=== PATIENT | female | born 1960 | race Caucasian/White ===

== ENCOUNTER 2016-02-26 13:42 | Inpatient (IN) | payer BC ==
[~2016-02-26] VITALS: Ht 157.5 cm; Wt 94.3 kg
[~2016-02-26 13:42] MED LIST: ALPRAZOLAM0.5 MG PO; AMBIEN5 MG PO; AMLOD-VALSA-HC1 EAC2 PO; AMLODIPINE BESYL5 MG PO; BREO ELLIPTA 21 EACH IH; BREO ELLIPTA I1 EACH IH; CITRATE OF MAG296 ML PO; COLACE100 MG PO; COMPAZINE10 MG PO; DECADRON2 MG PO; DEXAMETHASONE1 MG PO; DEXAMETHASONE4 MG PO; DIGOXIN125 MCG PO; DIVALPROEX SOD500 M1 PO; DOCUSATE SODIU100 MG PO; ENDOCET 5-3251 EACH PO; FOLIC ACID1 MG PO; HYDROCHLOROTH12.5 M3 PO; HYDROCHLOROTHIA25 MG PO; HYDROCODON-ACE1 EAC7 PO; LEVETIRACETAM750 MG PO; LEVOTHYROXINE50 MCG PO; LEXAPRO10 MG PO; LEXAPRO20 MG PO; LIDOCAINE700 MG TD; LIDODERM 5% P1 PATCH TD; LISINOPRIL-HCT1 EACH PO; LOPRESSOR25 MG PO; LORTAB 5-325 M1 EACH PO; MAG-OXIDE400 MG PO; MAGIC MOUTHWASH1 ML MM; MIRALAX17 GM PO; NICOTINE LOZENGE4 MG BC; OXYCODONE-APAP1 EACH PO; PHENERGAN25 MG PR; PRAVASTATIN SOD40 MG PO; PRILOSEC40 MG PO; PROAIR HFA8.5 GM IH; PROCHLORPERAZIN10 MG PO; PROMETHAZINE HC25 M1 PO; PROVENTIL,2.5 MG/3 M IH; PROZAC40 MG PO; ROXICODONE5 MG PO; SPIRIVA1 INHALATI IH; SYMBICORT60 INHALA1 IH; TRADJENTA5 MG PO; TUMS500 MG PO; VENTOLIN HFA18 GM IH; XANAX0.5 MG PO; ZESTRIL10 MG PO; ZOFRAN4 MG PO
[2016-02-26 15:26] LABS: HEMATOCRIT 38.6 % (36.0-46.0); MCH 30.3 PG (29.0-34.0); MCHC 33.9 G/DL (30.0-36.0); MCV 89.1 FL (83-99); MEAN PLAT.VOLUME 10.2 uM^3 (9.5-12.4); PLATELET COUNT 210 K/uL (156-360); RBC DIS.WIDTH-CV 13.4 % (11.8-14.6); RBC DIS.WIDTH-SD 42.5 % (39-53); RED BLOOD COUNT 4.33 M/uL (3.80-5.20)
[2016-02-26 15:27] LABS: WHITE BLOOD COUNT 9.4 K/uL (4.1-10.2)
[2016-02-26 15:37] LABS: CHLORIDE 106 mEq/L (99-109); POTASSIUM 3.6 mEq/L (3.7-5.4); SODIUM 141 mEq/L (136-147)
[2016-02-26 15:39] LABS: GLUCOSE 98 mg/dL (70-99)
[2016-02-26 15:40] LABS: ANION GAP 14 MEQ/L (2-14)
[2016-02-26 15:43] LABS: GFR ESTIMATE (CALCULATED) 39 mL/min/
[2016-02-26 15:44] LABS: UREA NITROGEN (BUN) 24 mg/dL (9-23)
[2016-02-26 15:49] LABS: TROP-I INTERPRETATION NEGATIVE; TROPONIN-I < 0.01 ng/mL (0.0-0.30)
[2016-02-26 18:35] LABS: INFLUENZA A VIRAL ANTIGEN NEGATIVE; INFLUENZA B VIRAL ANTIGEN NEGATIVE
[2016-02-26] MEDS ORDERED: PROZAC20 MG PO (18:46)
[2016-02-26] MEDS ORDERED: TYLENOL EXTRA500 MG PO (18:48)
[2016-02-26] MEDS ORDERED: MECLIZINE HCL25 MG PO (18:48)
[2016-02-26] MEDS ORDERED: KEPPRA500 MG PO (18:48)
[2016-02-26] MEDS ORDERED: FOLIC ACID1 MG PO (18:48)
[2016-02-26] MEDS ORDERED: PROMETHAZINE HC25 M1 PO (18:49)
[2016-02-26] MEDS ORDERED: DEXAMETHASONE4 MG PO (18:51)
[2016-02-26] MEDS ORDERED: SYMBICORT60 INHALAT IH (18:52)
[2016-02-26 22:25] VITALS: BP 126/65
[2016-02-26 23:30] VITALS: BP 126/65
[2016-02-27 04:00] VITALS: BP 181/81
[2016-02-27 07:00] LABS: HEMATOCRIT 37.2 % (36.0-46.0); MCH 29.7 PG (29.0-34.0); MCHC 33.1 G/DL (30.0-36.0); MCV 89.9 FL (83-99); MEAN PLAT.VOLUME 10.2 uM^3 (9.5-12.4); PLATELET COUNT 224 K/uL (156-360); RBC DIS.WIDTH-CV 13.5 % (11.8-14.6); RBC DIS.WIDTH-SD 44.1 % (39-53); RED BLOOD COUNT 4.14 M/uL (3.80-5.20); WHITE BLOOD COUNT 12.1 K/uL (4.1-10.2)
[2016-02-27 07:34] LABS: ANION GAP 13 MEQ/L (2-14); CHLORIDE 105 MEQ/L (99-109); GFR ESTIMATE (CALCULATED) 36 mL/min/; SAMPLE HEMOLYSIS CHECK 0; SAMPLE ICTERIC CHECK 0; SAMPLE LIPEMIA CHECK 0; SODIUM 138 MEQ/L (136-147); UREA NITROGEN (BUN) 22 mg/dL (9-23)
[2016-02-27 07:36] LABS: GLUCOSE 217 mg/dL (70-99); POTASSIUM 4.4 MEQ/L (3.7-5.4)
[2016-02-27 07:48] VITALS: BP 158/74
[2016-02-27 10:58] VITALS: BP 113/62
[2016-02-27 14:57] VITALS: BP 122/66
[2016-02-27 19:41] VITALS: BP 123/64
[2016-02-27 23:12] VITALS: BP 130/68
[2016-02-28 04:00] VITALS: BP 129/81
[2016-02-28 07:05] LABS: HEMATOCRIT 34.6 % (36.0-46.0); MCH 29.1 PG (29.0-34.0); MCHC 32.9 G/DL (30.0-36.0); MCV 88.3 FL (83-99); MEAN PLAT.VOLUME 10.4 uM^3 (9.5-12.4); PLATELET COUNT 201 K/uL (156-360); RBC DIS.WIDTH-CV 13.4 % (11.8-14.6); RBC DIS.WIDTH-SD 42.8 % (39-53); RED BLOOD COUNT 3.92 M/uL (3.80-5.20); WHITE BLOOD COUNT 10.2 K/uL (4.1-10.2)
[2016-02-28 07:43] LABS: ANION GAP 16 MEQ/L (2-14); CHLORIDE 102 MEQ/L (99-109); GFR ESTIMATE (CALCULATED) 39 mL/min/; GLUCOSE 156 mg/dL (70-99); SAMPLE HEMOLYSIS CHECK 0; SAMPLE ICTERIC CHECK 0; SAMPLE LIPEMIA CHECK 0; SODIUM 140 MEQ/L (136-147); UREA NITROGEN (BUN) 33 mg/dL (9-23)
[2016-02-28 08:31] VITALS: BP 138/79
[2016-02-28 12:00] VITALS: BP 129/66
[2016-02-28 16:05] VITALS: BP 133/64
[2016-02-28 20:00] VITALS: BP 131/74
[2016-02-28 21:22] LABS: POINT-OF-CARE METER ID UU14174225
[2016-02-28 23:30] VITALS: BP 143/75
[2016-02-29 04:00] VITALS: BP 115/67
[2016-02-29 07:34] LABS: HEMATOCRIT 32.9 % (36.0-46.0); MCH 29.7 PG (29.0-34.0); MCHC 33.7 G/DL (30.0-36.0); PLATELET COUNT 173 K/uL (156-360); RBC DIS.WIDTH-CV 13.5 % (11.8-14.6); RBC DIS.WIDTH-SD 43.5 % (39-53); RED BLOOD COUNT 3.74 M/uL (3.80-5.20)
[2016-02-29 07:37] LABS: WHITE BLOOD COUNT 6.6 K/uL (4.1-10.2)
[2016-02-29 07:42] LABS: ANION GAP 11 MEQ/L (2-14); CHLORIDE 100 MEQ/L (99-109); GFR ESTIMATE (CALCULATED) 36 mL/min/; GLUCOSE 130 mg/dL (70-99); SAMPLE HEMOLYSIS CHECK 0; SAMPLE ICTERIC CHECK 0; SAMPLE LIPEMIA CHECK 0; SODIUM 133 MEQ/L (136-147); UREA NITROGEN (BUN) 39 mg/dL (9-23)
[2016-02-29 08:11] VITALS: BP 126/78
[2016-02-29 12:00] VITALS: BP 124/69
[2016-02-29 16:00] VITALS: BP 120/65
[2016-02-29 20:20] VITALS: BP 117/65
[2016-02-29 21:04] LABS: POINT-OF-CARE METER ID UU14174225
[2016-03-01] VITALS (7 sets, daily range): BP systolic 107–133; BP diastolic 55–78
[2016-03-01 06:13] LABS: ANION GAP 10 MEQ/L (2-14); CHLORIDE 102 MEQ/L (99-109); GFR ESTIMATE (CALCULATED) 33 mL/min/; GLUCOSE 108 mg/dL (70-99); POTASSIUM 3.5 MEQ/L (3.7-5.4); SAMPLE HEMOLYSIS CHECK 0; SAMPLE ICTERIC CHECK 0; SAMPLE LIPEMIA CHECK 0; SODIUM 138 MEQ/L (136-147); UREA NITROGEN (BUN) 38 mg/dL (9-23)
[2016-03-01 21:00] LABS: POINT-OF-CARE METER ID UU14174225
[2016-03-02 04:07] VITALS: BP 127/69
[2016-03-02 07:26] LABS: ANION GAP 7 MEQ/L (2-14); CHLORIDE 102 MEQ/L (99-109); GFR ESTIMATE (CALCULATED) 33 mL/min/; GLUCOSE 92 mg/dL (70-99); POTASSIUM 3.8 MEQ/L (3.7-5.4); SAMPLE HEMOLYSIS CHECK 0; SAMPLE ICTERIC CHECK 0; SAMPLE LIPEMIA CHECK 0; SODIUM 136 MEQ/L (136-147); UREA NITROGEN (BUN) 42 mg/dL (9-23)
[2016-03-02 08:45] VITALS: BP 114/67
[2016-03-02 12:00] VITALS: BP 127/70
[2016-03-02 15:00] VITALS: BP 138/62
[2016-03-02 16:28] VITALS: BP 149/85
[2016-03-02 17:06] LABS: TROP-I INTERPRETATION NEGATIVE; TROPONIN-I < 0.01 ng/mL (0.0-0.30)
[2016-03-02 21:20] VITALS: BP 116/67
[2016-03-02 22:56] LABS: TROP-I INTERPRETATION NEGATIVE; TROPONIN-I < 0.01 ng/mL (0.0-0.30)
[2016-03-03] VITALS: BP 116/65
[2016-03-03 04:00] VITALS: BP 112/63
[2016-03-03 05:16] LABS: TROP-I INTERPRETATION NEGATIVE; TROPONIN-I < 0.01 ng/mL (0.0-0.30)
[2016-03-03 08:03] VITALS: BP 109/63
[2016-03-03 08:38] LABS: POINT-OF-CARE USER ID 612031313
[2016-03-03 11:32] VITALS: BP 114/62
[2016-03-03 12:46] LABS: POINT-OF-CARE METER ID UU14174225; POINT-OF-CARE USER ID 612031313
[2016-03-03 16:00] VITALS: BP 120/58
[2016-03-03 17:52] LABS: POINT-OF-CARE METER ID UU14174225
[2016-03-03 20:59] VITALS: BP 121/60
[2016-03-03 23:22] LABS: POINT-OF-CARE METER ID UU14174225
[2016-03-04 01:52] VITALS: BP 111/68
[2016-03-04 04:57] VITALS: BP 110/67
[2016-03-04 07:21] LABS: HEMATOCRIT 33.1 % (36.0-46.0); MCH 30.2 PG (29.0-34.0); MCHC 33.2 G/DL (30.0-36.0); MCV 90.9 FL (83-99); MEAN PLAT.VOLUME 10.5 uM^3 (9.5-12.4); PLATELET COUNT 151 K/uL (156-360); RBC DIS.WIDTH-CV 13.6 % (11.8-14.6); RED BLOOD COUNT 3.64 M/uL (3.80-5.20); WHITE BLOOD COUNT 5.6 K/uL (4.1-10.2)
[2016-03-04 07:39] VITALS: BP 116/89
[2016-03-04 08:05] LABS: ANION GAP 9 MEQ/L (2-14); CHLORIDE 99 MEQ/L (99-109); GFR ESTIMATE (CALCULATED) 29 mL/min/; GLUCOSE 81 mg/dL (70-99); POTASSIUM 3.7 MEQ/L (3.7-5.4); SAMPLE HEMOLYSIS CHECK 0; SAMPLE ICTERIC CHECK 0; SAMPLE LIPEMIA CHECK 0; SODIUM 136 MEQ/L (136-147); UREA NITROGEN (BUN) 40 mg/dL (9-23)
[2016-03-04] MEDS ORDERED: SPIRIVA RESPIMAT4 GM IH (11:12)
[2016-03-04] MEDS ORDERED: PREDNISONE20 MG PO (11:12)
[2016-03-04] MEDS ORDERED: BENZONATATE100 MG PO (11:12)
[2016-03-04] MEDS ORDERED: ATORVASTATIN CA40 MG PO (11:12)
[2016-03-04 11:36] VITALS: BP 100/65
== END 2016-03-04 14:47 | disposition home or self-care (01) | DRG 191 ==
LOC: EME 13:42 → EDOF 20:23 → 5SOUTH 20:45 → EDOF 20:45 → 5SOUTH 22:13
PROVIDERS: Emergency Medicine; Hospitalist; Physician Assistant Medical
DX: J44.1 Chronic obstructive pulmonary disease with (acute) exacerbation (principal); C34.90 Malignant neoplasm of unspecified part of unspecified bronchus or lung; C79.31 Secondary malignant neoplasm of brain; N17.9 Acute kidney failure, unspecified; N18.3 Chronic kidney disease, stage 3 (moderate); E87.6 Hypokalemia; I12.9 Hypertensive chronic kidney disease with stage 1 through stage 4 chronic kidney disease, or unspecified chronic kidney disease; R00.0 Tachycardia, unspecified; B37.9 Candidiasis, unspecified; E09.9 Drug or chemical induced diabetes mellitus without complications; R56.9 Unspecified convulsions; E03.9 Hypothyroidism, unspecified; F32.9 Major depressive disorder, single episode, unspecified; F41.9 Anxiety disorder, unspecified; Z87.891 Personal history of nicotine dependence; Z92.21 Personal history of antineoplastic chemotherapy; Z92.3 Personal history of irradiation
CPT/HCPCS: 71010; 71020; 71275; 80048; 82948; 84484; 85027; 87040; 87070; 87205; 87502; 93005; 93306; 94010; 94640; 94640 76; 94799; 99202; 99281; 99285; J1650; J1815; J2930; J3480; J7030; J7512

== ENCOUNTER 2016-11-27 12:49 | Day surgery (SDC) | payer BC ==
[~2016-11-27] VITALS: Ht 157.5 cm; Wt 93.0 kg
[~2016-11-27 12:49] MED LIST changes: +ATORVASTATIN CA40 MG PO; +BENZONATATE100 MG PO; +KEPPRA500 MG PO; +KEPPRA750 MG PO; +MECLIZINE HCL25 MG PO; +MIRALAX119 GM PO; +PREDNISONE20 MG PO; +PROZAC20 MG PO; +SENNA8.6 MG PO; +SPIRIVA RESPIMAT4 GM IH; +SYMBICORT60 INHALAT IH; +TYLENOL EXTRA500 MG PO
[2016-11-27 13:26] LABS: EOSINOPHIL (%) 2.3 % (0-5); EOSINOPHIL COUNT 0.1 K/uL (0-0.3); HEMATOCRIT 38.3 % (36.0-46.0); INSTRUMENT ABS NEUTROPHIL CT 1.5 K/uL; MCH 28.6 PG (29.0-34.0); MCHC 32.4 G/DL (30.0-36.0); MCV 88.5 FL (83-99); MEAN PLAT.VOLUME 10.2 uM^3 (9.5-12.4); MONOCYTE (%) 15.2 % (3-12); MONOCYTE COUNT 0.5 K/uL (0-0.8); NEUTROPHIL (%) 48.7 % (45-76); NEUTROPHIL COUNT 1.5 K/uL (1.8-6.4); PLATELET COUNT 234 K/uL (156-360); RBC DIS.WIDTH-CV 13.1 % (11.8-14.6); RBC DIS.WIDTH-SD 42.4 % (39-53); RED BLOOD COUNT 4.33 M/uL (3.80-5.20)
[2016-11-27] MEDS ORDERED: BACTRIM,SEPT1 TABLET PO (13:27)
[2016-11-27] MEDS ORDERED: BENADRYL50 MG PO (13:33)
[2016-11-27] MEDS ORDERED: ZANTAC150 MG PO (13:34)
[2016-11-27] MEDS ORDERED: TUMS500 MG PO (13:36)
[2016-11-27 13:44] VITALS: BP 112/61
[2016-11-27 13:50] LABS: ANION GAP 14 MEQ/L (2-14); CHLORIDE 106 MEQ/L (99-109); POTASSIUM 3.7 MEQ/L (3.7-5.4); SAMPLE HEMOLYSIS CHECK 0; SAMPLE ICTERIC CHECK 0; SAMPLE LIPEMIA CHECK 0; SODIUM 139 MEQ/L (136-147); TOTAL BILIRUBIN 0.4 MG/DL (0.0-1.0)
[2016-11-27 13:56] LABS: ALKALINE PHOSPHATASE 100 IU/L (3-129); GFR ESTIMATE (CALCULATED) 33 mL/min/; GLUCOSE 99 mg/dL (70-99); UREA NITROGEN (BUN) 14 mg/dL (9-23)
[2016-11-27 14:10] LABS: INTER. NORMALIZED RATIO 1.1; PROTHROMBIN TIME 12.3 SEC (10.2-12.9)
[2016-11-27 14:13] LABS: PTT 28.9 SEC (25-37)
[2016-11-27] MEDS ORDERED: COLACE100 MG PO (17:57)
[2016-11-27] MEDS ORDERED: HYDROCODON-ACE1 EAC7 PO (17:57)
[2016-11-27 18:40] VITALS: BP 104/60
[2016-11-27 19:40] VITALS: BP 117/58
== END 2016-11-27 20:05 | disposition home or self-care (01) ==
LOC: SDC 12:49
PROVIDERS: Thoracic Surgery (Cardiothoracic Vascular Surgery)
PROC: 0JH63WZ Insertion of Totally Implantable Vascular Access Device into Chest Subcutaneous Tissue and Fascia, Percutaneous Approach (ICD-10-PCS; principal; 2016-11-27)
DX: Z45.2 Encounter for adjustment and management of vascular access device (principal); C34.12 Malignant neoplasm of upper lobe, left bronchus or lung; C77.1 Secondary and unspecified malignant neoplasm of intrathoracic lymph nodes; I10 Essential (primary) hypertension; J43.9 Emphysema, unspecified; E03.9 Hypothyroidism, unspecified
CPT/HCPCS: 71010; 80053; 85025; 85610; 85730; 94640; C1751; J0690; J0696; J1100; J2250; J2405; J3010; J7050

== ENCOUNTER 2016-12-21 18:18 | Inpatient (IN) | payer BC ==
[~2016-12-21] VITALS: Ht 165.1 cm; Wt 112.8 kg
[~2016-12-21 18:18] MED LIST changes: +BACTRIM,SEPT1 TABLET PO; +BENADRYL25 MG PO; +ZANTAC150 MG PO
[2016-12-21 18:47] LABS: HEMATOCRIT 34.4 % (36.0-46.0); MCH 28.2 PG (29.0-34.0); MCHC 32.3 G/DL (30.0-36.0); MCV 87.5 FL (83-99); MEAN PLAT.VOLUME 9.3 uM^3 (9.5-12.4); NRBC (%) 0.5 /100 WBC (0-0); PLATELET COUNT 224 K/uL (156-360); RBC DIS.WIDTH-CV 14.8 % (11.8-14.6); RBC DIS.WIDTH-SD 46.5 % (39-53); RED BLOOD COUNT 3.93 M/uL (3.80-5.20); WHITE BLOOD COUNT 3.9 K/uL (4.1-10.2)
[2016-12-21 19:16] LABS: INTER. NORMALIZED RATIO 1.1; PROTHROMBIN TIME 12.6 SEC (10.2-12.9)
[2016-12-21 21:24] LABS: ANION GAP 11 MEQ/L (2-14); CHLORIDE 108 MEQ/L (99-109); MAGNESIUM 1.5 mg/dl (1.3-2.7); POTASSIUM 4.1 MEQ/L (3.7-5.4); SAMPLE HEMOLYSIS CHECK 0; SAMPLE ICTERIC CHECK 0; SAMPLE LIPEMIA CHECK 0; SODIUM 142 MEQ/L (136-147)
[2016-12-21 21:27] LABS: TOTAL BILIRUBIN 0.4 MG/DL (0.0-1.0)
[2016-12-21 21:29] LABS: ALKALINE PHOSPHATASE 101 IU/L (3-129); GFR ESTIMATE (CALCULATED) 50 mL/min/; GLUCOSE 110 mg/dL (70-99); UREA NITROGEN (BUN) 14 mg/dL (9-23)
[2016-12-21 22:11] LABS: TROP-I INTERPRETATION NEGATIVE; TROPONIN-I 0.01 ng/mL (0.0-0.30)
[2016-12-22] MEDS ORDERED: LO-DOSE ASPIRIN81 M2 PO (01:18)
[2016-12-22] MEDS ORDERED: SENNA-DOCUSATE1 EAC1 PO (01:33)
[2016-12-22] MEDS ORDERED: LIPITOR40 MG PO (01:43)
[2016-12-22 01:50] LABS: ADD MIUA? NO; BILIRUBIN NEGATIVE; BLOOD NEGATIVE; COLOR STRAW ((YELLOW)); GLUCOSE (STRIP) NEGATIVE; KETONES NEGATIVE; LEUKOCYTES NEGATIVE; NITRITE NEGATIVE; PROTEIN (STRIP) NEGATIVE; SPECIFIC GRAVITY 1.035 (1.000-1.030); UROBILINOGEN 0.2 MG/DL (0.2-1.0)
[2016-12-22 02:55] LABS: TROP-I INTERPRETATION NEGATIVE; TROPONIN-I < 0.01 ng/mL (0.0-0.30)
[2016-12-22 03:24] VITALS: BP 89/51
[2016-12-22 04:03] LABS: METH RESISTANT S AUREUS PCR POSITIVE (NEGATIVE)
[2016-12-22 04:18] LABS: PROBE CHECK PASS
[2016-12-22 09:05] VITALS: BP 113/67
[2016-12-22 10:20] LABS: INTERNAL CONTROL VALID? YES
[2016-12-22 10:23] LABS: HEMATOCRIT 28.9 % (36.0-46.0); MCH 28.3 PG (29.0-34.0); MCHC 31.5 G/DL (30.0-36.0); MEAN PLAT.VOLUME 9.5 uM^3 (9.5-12.4); PLATELET COUNT 187 K/uL (156-360); RBC DIS.WIDTH-CV 15.2 % (11.8-14.6); RBC DIS.WIDTH-SD 48.6 % (39-53); RED BLOOD COUNT 3.21 M/uL (3.80-5.20); WHITE BLOOD COUNT 6.1 K/uL (4.1-10.2)
[2016-12-22 10:46] LABS: ANION GAP 7 MEQ/L (2-14); CHLORIDE 111 MEQ/L (99-109); GFR ESTIMATE (CALCULATED) 46 mL/min/; GLUCOSE 103 mg/dL (70-99); SAMPLE HEMOLYSIS CHECK 0; SAMPLE ICTERIC CHECK 0; SAMPLE LIPEMIA CHECK 0; SODIUM 141 MEQ/L (136-147); UREA NITROGEN (BUN) 13 mg/dL (9-23)
[2016-12-22 11:44] VITALS: BP 129/79
[2016-12-22 16:01] VITALS: BP 123/79
[2016-12-22 20:25] VITALS: BP 130/78
[2016-12-22 23:23] VITALS: BP 13/74
[2016-12-23 03:41] VITALS: BP 132/74
[2016-12-23 05:57] LABS: HEMATOCRIT 30.7 % (36.0-46.0); MCH 29.2 PG (29.0-34.0); MCHC 32.6 G/DL (30.0-36.0); MCV 89.5 FL (83-99); PLATELET COUNT 206 K/uL (156-360); RBC DIS.WIDTH-CV 15.1 % (11.8-14.6); RED BLOOD COUNT 3.43 M/uL (3.80-5.20); WHITE BLOOD COUNT 6.7 K/uL (4.1-10.2)
[2016-12-23 06:38] LABS: ANION GAP 10 MEQ/L (2-14); CHLORIDE 111 MEQ/L (99-109); GFR ESTIMATE (CALCULATED) 46 mL/min/; GLUCOSE 97 mg/dL (70-99); POTASSIUM 3.9 MEQ/L (3.7-5.4); SAMPLE HEMOLYSIS CHECK 0; SAMPLE ICTERIC CHECK 0; SAMPLE LIPEMIA CHECK 0; SODIUM 142 MEQ/L (136-147); UREA NITROGEN (BUN) 11 mg/dL (9-23)
[2016-12-23 07:07] VITALS: BP 110/56
[2016-12-23 11:11] VITALS: BP 108/57
[2016-12-23 15:15] VITALS: BP 131/64
[2016-12-23 19:38] VITALS: BP 134/76
[2016-12-23 23:31] VITALS: BP 118/57
[2016-12-24 04:00] VITALS: BP 120/61
[2016-12-24 07:05] LABS: EOSINOPHIL (%) 0.6 % (0-5); HEMATOCRIT 28.7 % (36.0-46.0); IMMATURE GRANULOCYTE COUNT 0.1 K/uL; INSTRUMENT ABS NEUTROPHIL CT 4.6 K/uL; LYMPHOCYTE COUNT 0.7 K/uL (1.0-2.8); MCH 29.2 PG (29.0-34.0); MCHC 33.1 G/DL (30.0-36.0); MCV 88.3 FL (83-99); MEAN PLAT.VOLUME 9.8 uM^3 (9.5-12.4); MONOCYTE (%) 12.7 % (3-12); MONOCYTE COUNT 0.8 K/uL (0-0.8); NEUTROPHIL (%) 73.4 % (45-76); NEUTROPHIL COUNT 4.6 K/uL (1.8-6.4); PLATELET COUNT 184 K/uL (156-360); RBC DIS.WIDTH-CV 14.8 % (11.8-14.6); RBC DIS.WIDTH-SD 47.9 % (39-53); RED BLOOD COUNT 3.25 M/uL (3.80-5.20); WHITE BLOOD COUNT 6.2 K/uL (4.1-10.2)
[2016-12-24 07:30] LABS: ANION GAP 9 MEQ/L (2-14); CHLORIDE 109 MEQ/L (99-109); GFR ESTIMATE (CALCULATED) 46 mL/min/; GLUCOSE 103 mg/dL (70-99); POTASSIUM 3.8 MEQ/L (3.7-5.4); SAMPLE HEMOLYSIS CHECK 0; SAMPLE ICTERIC CHECK 0; SAMPLE LIPEMIA CHECK 0; SODIUM 144 MEQ/L (136-147); UREA NITROGEN (BUN) 9 mg/dL (9-23)
[2016-12-24 07:49] VITALS: BP 123/68
[2016-12-24 20:01] VITALS: BP 122/64
[2016-12-25 00:05] VITALS: BP 100/60
[2016-12-25 07:05] LABS: HEMATOCRIT 30.9 % (36.0-46.0); MCH 29.3 PG (29.0-34.0); MCHC 33.7 G/DL (30.0-36.0); MEAN PLAT.VOLUME 9.9 uM^3 (9.5-12.4); RBC DIS.WIDTH-CV 14.7 % (11.8-14.6); RBC DIS.WIDTH-SD 46.9 % (39-53); RED BLOOD COUNT 3.55 M/uL (3.80-5.20); WHITE BLOOD COUNT 7.1 K/uL (4.1-10.2)
[2016-12-25 07:11] LABS: PLATELET COUNT 251 K/uL (156-360)
[2016-12-25 07:36] LABS: ANION GAP 15 MEQ/L (2-14); CHLORIDE 106 MEQ/L (99-109); GFR ESTIMATE (CALCULATED) 46 mL/min/; GLUCOSE 96 mg/dL (70-99); POTASSIUM 3.6 MEQ/L (3.7-5.4); SAMPLE HEMOLYSIS CHECK 0; SAMPLE ICTERIC CHECK 0; SAMPLE LIPEMIA CHECK 0; SODIUM 144 MEQ/L (136-147); UREA NITROGEN (BUN) 8 mg/dL (9-23)
[2016-12-25 08:19] VITALS: BP 90/50
[2016-12-25] MEDS ORDERED: DOXYCYCLINE HY100 M3 PO (08:54)
[2016-12-25] MEDS ORDERED: LOSARTAN POTAS100 MG PO (08:55)
[2016-12-25] MEDS ORDERED: AMLODIPINE BESYL5 MG PO (08:55)
== END 2016-12-25 16:15 | disposition home health service (06) | DRG 871 ==
LOC: EME 18:18 → 5SOUTH 12-22 00:16 → EDOF 12-22 00:16 → ENRESERV 12-22 00:23 → 5SOUTH 12-22 02:07 → CANRESERV 12-23 20:13 → ENRESERV 12-23 20:13 → 5SOUTH 12-25 16:15
PROVIDERS: Hospitalist; Internal Medicine; Physician Assistant Medical
DX: A41.9 Sepsis, unspecified organism (principal); J15.9 Unspecified bacterial pneumonia; J44.1 Chronic obstructive pulmonary disease with (acute) exacerbation; J44.0 Chronic obstructive pulmonary disease with (acute) lower respiratory infection; C79.31 Secondary malignant neoplasm of brain; Z68.41 Body mass index [BMI] 40.0-44.9, adult; F33.9 Major depressive disorder, recurrent, unspecified; C34.02 Malignant neoplasm of left main bronchus; G40.909 Epilepsy, unspecified, not intractable, without status epilepticus; N18.3 Chronic kidney disease, stage 3 (moderate); J20.9 Acute bronchitis, unspecified; E03.9 Hypothyroidism, unspecified; E09.9 Drug or chemical induced diabetes mellitus without complications; T38.0X5A Adverse effect of glucocorticoids and synthetic analogues, initial encounter; E78.5 Hyperlipidemia, unspecified; F41.8 Other specified anxiety disorders; I12.9 Hypertensive chronic kidney disease with stage 1 through stage 4 chronic kidney disease, or unspecified chronic kidney disease; I25.10 Atherosclerotic heart disease of native coronary artery without angina pectoris; E66.9 Obesity, unspecified; Z79.82 Long term (current) use of aspirin; Z99.81 Dependence on supplemental oxygen; Z85.118 Personal history of other malignant neoplasm of bronchus and lung; Z85.41 Personal history of malignant neoplasm of cervix uteri; Z87.891 Personal history of nicotine dependence; Z90.2 Acquired absence of lung [part of]; Z92.21 Personal history of antineoplastic chemotherapy; Z92.3 Personal history of irradiation; Z82.49 Family history of ischemic heart disease and other diseases of the circulatory system; Z83.3 Family history of diabetes mellitus; Z82.3 Family history of stroke
CPT/HCPCS: 70450; 71010; 71275; 80048; 80053; 81003; 83605; 83735; 84443; 84484; 85025; 85027; 85610; 87040; 87070; 87205; 87449; 87641; 93005; 93306; 94640; 94640 76; 94760; 94799; 99202; 99281; 99285; J0696; J2270; J2405; J2543; J3370; J7030; J7040; J7050

== ENCOUNTER → 2017-01-13 | Outpatient (CLI) | payer BC ==
[~2017-01-13] MED LIST changes: +AMLOD-VALSA-HC1 EAC3 PO; +DOXYCYCLINE HY100 M3 PO; +ERGOCALCIF50000 UNIT PO; +LEVAQUIN750 MG PO; +LIPITOR40 MG PO; +LO-DOSE ASPIRIN81 M2 PO; +LOSARTAN POTAS100 MG PO; +OMEPRAZOLE20 MG PO; +PREDNISONE5 M1 PO; +SENNA-DOCUSATE1 EAC1 PO; +ZOFRAN8 MG PO
== END | disposition home or self-care (01) ==
LOC: RAD 13:44
PROC: 0G9G3ZX Drainage of Left Thyroid Gland Lobe, Percutaneous Approach, Diagnostic (ICD-10-PCS; principal; 2017-01-13)
DX: E04.1 Nontoxic single thyroid nodule (principal)
CPT/HCPCS: 76942; 88173

== ENCOUNTER → 2017-01-19 | Outpatient (CLI) | payer BC | END | disposition home or self-care (01) | LOC: OPR 07:53 → EDSTATUS 08:00 → OPR 08:00 | DX: R59.9 Enlarged lymph nodes, unspecified (principal); Z85.118 Personal history of other malignant neoplasm of bronchus and lung | CPT/HCPCS: 76942; 88305; 88342 TC ==

== ENCOUNTER 2017-02-13 14:37 | Emergency (ER) | payer BC ==
[~2017-02-13] VITALS: Ht 157.5 cm; Wt 93.1 kg
[2017-02-13 15:21] LABS: HEMOGLOBIN 11.7 G/DL (11.9-15.5); MCH 29.8 PG (29.0-34.0); MCHC 33.4 G/DL (30.0-36.0); MCV 89.1 FL (83-99); RBC DIS.WIDTH-CV 14.6 % (11.8-14.6); RBC DIS.WIDTH-SD 47.4 % (39-53); RED BLOOD COUNT 3.93 M/uL (3.80-5.20); WHITE BLOOD COUNT 2.1 K/uL (4.1-10.2)
[2017-02-13 15:33] LABS: CHLORIDE 101 mEq/L (99-109); POTASSIUM 3.9 mEq/L (3.7-5.4); SODIUM 137 mEq/L (136-147)
[2017-02-13 15:35] LABS: GLUCOSE 110 mg/dL (70-99)
[2017-02-13 15:39] LABS: CREATININE 1.6 mg/dL (0.6-1.3); GFR ESTIMATE (CALCULATED) 36 mL/min/
[2017-02-13 15:40] LABS: UREA NITROGEN (BUN) 25 mg/dL (9-23)
[2017-02-13 16:27] LABS: ABS NEUTROPHIL COUNT 1.5; ANISOCYTOSIS 1+; ATYPICAL LYMPHOCYTE 3.6 %; BASOPHILS 0.9 %; EOSINOPHIL ABS CT 0; HEMATOLOGY COMMENT 1 SN; LYMPHOCYTES 18.7 % (15.0-45.0); MONOCYTES 4.5 % (0-9.0); NUCLEATED RBC'S 0.9; OVALOCYTES 1+; PLATELET CLUMPS PRESENT - PLATELET COUNT APPEARS ADQ.; POIKILOCYTOSIS 1+; POLYCHROMASIA 1+; SEG.NEUTROPHILS 55.3 % (46.0-76.0); TEAR DROP CELLS 1+
[2017-02-13] MEDS ORDERED: LEVAQUIN750 MG PO (17:35)
[2017-02-13 18:12] VITALS: BP 140/76
== END 2017-02-13 18:15 | disposition home or self-care (01) ==
LOC: EME 14:37
PROVIDERS: Physician Assistant
DX: J18.9 Pneumonia, unspecified organism (principal); J44.0 Chronic obstructive pulmonary disease with (acute) lower respiratory infection; F41.9 Anxiety disorder, unspecified; N18.9 Chronic kidney disease, unspecified; Z85.118 Personal history of other malignant neoplasm of bronchus and lung; Z87.891 Personal history of nicotine dependence; Z99.81 Dependence on supplemental oxygen; R56.9 Unspecified convulsions; Z79.82 Long term (current) use of aspirin
CPT/HCPCS: 71020; 71275; 80048; 85025; 85379; 94640; 99281; 99284; J7512

== ENCOUNTER 2017-04-28 01:30 | Emergency (ER) | payer BC ==
[~2017-04-28] VITALS: Ht 157.5 cm; Wt 105.6 kg
[2017-04-28 03:32] LABS: BASOPHIL (%) 0.5 % (0-1); BASOPHIL COUNT 0.1 K/uL (0-0.1); EOSINOPHIL (%) 0.1 % (0-5); HEMATOCRIT 35.3 % (36.0-46.0); IMMATURE GRANULOCYTE (%) 2.4 % (0.0-0.7); LYMPHOCYTE (%) 9.8 % (15-42); LYMPHOCYTE COUNT 1.1 K/uL (1.0-2.8); MCH 30.2 PG (29.0-34.0); MCV 88.9 FL (83-99); MONOCYTE (%) 8.6 % (3-12); NEUTROPHIL (%) 78.6 % (45-76); NEUTROPHIL COUNT 8.7 K/uL (1.8-6.4); PLATELET COUNT 291 K/uL (156-360); RBC DIS.WIDTH-CV 14.7 % (11.8-14.6); RBC DIS.WIDTH-SD 47.8 % (39-53); RED BLOOD COUNT 3.97 M/uL (3.80-5.20); WHITE BLOOD COUNT 11.1 K/uL (4.1-10.2)
[2017-04-28 03:39] LABS: CHLORIDE 106 mEq/L (99-109); SODIUM 139 mEq/L (136-147)
[2017-04-28 03:41] LABS: GLUCOSE 86 mg/dL (70-99)
[2017-04-28 03:44] LABS: CREATININE 1.3 mg/dL (0.6-1.3); GFR ESTIMATE (CALCULATED) 45 mL/min/
[2017-04-28 03:45] LABS: UREA NITROGEN (BUN) 33 mg/dL (9-23)
[2017-04-28 03:51] LABS: TROP-I INTERPRETATION NEGATIVE; TROPONIN-I < 0.01 ng/mL (0.0-0.30)
[2017-04-28] MEDS ORDERED: NORCO 5/3251 TABLET PO (05:53)
[2017-04-28 06:30] VITALS: BP 117/70
== END 2017-04-28 06:29 | disposition home or self-care (01) ==
LOC: EME 01:30
PROVIDERS: Emergency Medicine
PROC: 0QSJXZZ Reposition Right Fibula, External Approach (ICD-10-PCS; principal; 2017-04-28)
DX: S82.851A Displaced trimalleolar fracture of right lower leg, initial encounter for closed fracture (principal); S93.04XA Dislocation of right ankle joint, initial encounter; W18.30XA Fall on same level, unspecified, initial encounter; Y92.002 Bathroom of unspecified non-institutional (private) residence as the place of occurrence of the external cause; C34.90 Malignant neoplasm of unspecified part of unspecified bronchus or lung; C79.31 Secondary malignant neoplasm of brain; N18.9 Chronic kidney disease, unspecified; R56.9 Unspecified convulsions; Z87.891 Personal history of nicotine dependence; F41.9 Anxiety disorder, unspecified
CPT/HCPCS: 70450; 73600; 73610; 80048; 84484; 85025; 93005; 99281; 99285; J3010

== ENCOUNTER 2017-05-06 08:57 | Day surgery (SDC) | payer BC ==
[~2017-05-06] VITALS: Ht 157.5 cm; Wt 99.8 kg
[~2017-05-06 08:57] MED LIST changes: +CELEXA20 MG PO; +KEPPRA1000 MG PO; -KEPPRA750 MG PO; +NORCO 5/3251 TABLET PO
[2017-05-06 10:39] VITALS: BP 112/67
[2017-05-06 14:00] VITALS: BP 123/67
[2017-05-06 20:34] VITALS: BP 118/60
[2017-05-06 21:13] VITALS: BP 128/68
[2017-05-07 00:20] VITALS: BP 120/64
[2017-05-07 04:26] VITALS: BP 122/68
[2017-05-07 08:00] VITALS: BP 110/64
[2017-05-07] MEDS ORDERED: ROXICODONE5 MG PO (09:20)
== END 2017-05-07 11:25 | disposition home or self-care (01) ==
LOC: SDC 08:57 → 3WEST 14:20 → 2SOUTH 14:20 → ENRESERV 14:50 → 3WEST 17:06
PROVIDERS: Orthopaedic Surgery
DX: S82.841A Displaced bimalleolar fracture of right lower leg, initial encounter for closed fracture (principal); X50.1XXA Overexertion from prolonged static or awkward postures, initial encounter; W18.30XA Fall on same level, unspecified, initial encounter; Y92.002 Bathroom of unspecified non-institutional (private) residence as the place of occurrence of the external cause; E78.5 Hyperlipidemia, unspecified; J44.9 Chronic obstructive pulmonary disease, unspecified; E03.9 Hypothyroidism, unspecified; I12.0 Hypertensive chronic kidney disease with stage 5 chronic kidney disease or end stage renal disease; N18.3 Chronic kidney disease, stage 3 (moderate); Z87.891 Personal history of nicotine dependence; Z85.118 Personal history of other malignant neoplasm of bronchus and lung
CPT/HCPCS: 73600; 76000; 82948; 94640; 94640 76; 94799; C1713; G0378; J0131; J1720; J2250; J2270; J2405; J2795; J3370; J8540; S0020

== ENCOUNTER 2017-06-09 11:57 | Day surgery (SDC) | payer BC ==
[~2017-06-09] VITALS: Ht 157.5 cm; Wt 97.5 kg
[2017-06-09 12:50] VITALS: BP 101/63
[2017-06-09 16:38] VITALS: BP 115/55
[2017-06-09 17:45] VITALS: BP 130/61
== END 2017-06-09 19:15 | disposition home or self-care (01) ==
LOC: SDC 11:57
PROVIDERS: Orthopaedic Surgery
PROC: 0QP Lower Bones, Removal (ICD-10-PCS; principal; 2017-06-09)
PROC: 0QPJ35Z Removal of External Fixation Device from Right Fibula, Percutaneous Approach (ICD-10-PCS; principal; 2017-06-09)
DX: S82.841D Displaced bimalleolar fracture of right lower leg, subsequent encounter for closed fracture with routine healing (principal)
CPT/HCPCS: 82948; J0171; J2250; J2795

== ENCOUNTER 2017-08-17 00:12 | Emergency (ER) | payer BC ==
[~2017-08-17] VITALS: Ht 157.5 cm; Wt 104.5 kg
[2017-08-17 00:46] LABS: HEMOGLOBIN 13.7 G/DL (11.9-15.5); MCH 28.4 PG (29.0-34.0); MCHC 33.4 G/DL (30.0-36.0); MCV 85.1 FL (83-99); PLATELET COUNT 244 K/uL (156-360); RBC DIS.WIDTH-CV 14.5 % (11.8-14.6); RBC DIS.WIDTH-SD 44.9 % (39-53); RED BLOOD COUNT 4.82 M/uL (3.80-5.20); WHITE BLOOD COUNT 7.4 K/uL (4.1-10.2)
[2017-08-17 00:55] LABS: ALBUMIN 3.8 g/dL (3.2-4.8); CHLORIDE 107 mEq/L (99-109); POTASSIUM 4.3 mEq/L (3.7-5.4); SODIUM 141 mEq/L (136-147)
[2017-08-17 00:57] LABS: GLUCOSE 95 mg/dL (70-99)
[2017-08-17 00:58] LABS: TOTAL PROTEIN 6.9 g/dL (6.4-8.3)
[2017-08-17 00:59] LABS: TOTAL BILIRUBIN 0.3 mg/dL (0.0-1.0)
[2017-08-17 01:01] LABS: ALKALINE PHOSPHATASE 113 IU/L (3-129); CREATININE 1.5 mg/dL (0.6-1.3); GFR ESTIMATE (CALCULATED) 38 mL/min/
[2017-08-17 01:02] LABS: UREA NITROGEN (BUN) 32 mg/dL (9-23)
[2017-08-17 01:03] LABS: AST (GOT) 15 IU/L (2-34)
[2017-08-17 01:04] LABS: ALT (GPT) 23 IU/L (3-49)
[2017-08-17 06:51] VITALS: BP 119/73
== END 2017-08-17 06:54 | disposition short-term general hospital (02) ==
LOC: EME 00:12
DX: G93.9 Disorder of brain, unspecified (principal); G93.2 Benign intracranial hypertension; R51 Headache; Z85.118 Personal history of other malignant neoplasm of bronchus and lung; Z87.891 Personal history of nicotine dependence; J42 Unspecified chronic bronchitis; N18.9 Chronic kidney disease, unspecified; R56.9 Unspecified convulsions; G43.909 Migraine, unspecified, not intractable, without status migrainosus; F41.9 Anxiety disorder, unspecified; F32.9 Major depressive disorder, single episode, unspecified; Z79.82 Long term (current) use of aspirin
CPT/HCPCS: 70450; 80053; 85027; 99281; 99285; J1100; J2270; J2405; J2765; J3010; J7030